=== PATIENT | male | born 1950 | race Hispanic/Latino ===

== ENCOUNTER → 2024-12-23 | Outpatient (CLI) | payer OTHER, MEDICAID ==
[~2024-12-23] VITALS: Ht 172.7 cm; Wt 85.5 kg
[~2024-12-23] MED LIST: ASPI-1443 PO; ATOR20TA65 PO; DAPA10TA PO; EVOL140S2 SQ; FAMO20TA8 PO; FENO48TA10 PO; OLME-31 PO; TAMS-55 PO
[2024-12-23 08:42] LABS: IMMATURE GRANULOCYTE ABSOLUTE 0.01 K/uL (0-1); NUCLEATED RED BLOOD CELLS 0.0 % (0.0-0.19); PLATELET COUNT (AUTO) 175 K/uL (130-400); RED BLOOD CELL COUNT(AUTO) 4.44 MIL/uL (4.50-6.20); RED CELL DISTRIBUTION WIDTH 12.0 % (11.0-15.5); WHITE BLOOD COUNT (AUTO) 4.7 K/uL (4.8-10.8)
[2024-12-23 08:49] LABS: CREATININE 2.4 mg/dL (0.5-1.3); GLOMERULAR FILTR. RATE CALC 28.0 mL/min (>90); GLUCOSE,RANDOM 114.0 mg/dL (70-105); SODIUM SERUM 140.0 mmol/L (136-145); UREA NITROGEN, BLOOD 35.0 mg/dL (7-18)
[2024-12-23 08:57] VITALS: BP 118/63; PULSE 72; RESP 18; TEMP 97.7
[2024-12-23 08:58] LABS: INR 0.96 (0.85-1.15)
[2024-12-23 09:05] LABS: APPEARANCE,URINE CLEAR (CLEAR); GLUCOSE, URINE (UA) >=1000 mg/dL (NEGATIVE); LEUKOCYTE ESTERASE ,URINE NEGATIVE Leu/uL (NEGATIVE); NITRATE,URINE NEGATIVE (NEGATIVE); OCCULT BLOOD,URINE NEGATIVE (NEGATIVE)
[2024-12-23 09:09] LABS: ADD UA MICROSCOPIC YES
--- NOTE | 2024-12-23 10:38 | EKG ---
[facility] Test Date: 2024-12-23 Test Time: 08:24:37 Pat Name: EDDIE VICENTE Department: [facility] Room: Gender: Loader: [id number] : 1950 Requested By: IKE HUFFMAN Order Number: [id number] Reading MD: Colin Dodd Measurements Intervals Tucker Rate: 66 P: 52 ID: [id number] QRS: 41 QRSD: 88 T: 50 QT: 383 QTc: 402 Interpretive Statements Sinus rhythm No previous ECG available for comparison Electronically Signed On 12-24-2024 06:55:25 CDT by Colin Dodd Please click the below link to view image of tracing.
--- NOTE | 2024-12-23 15:48 | HMCIMG ---
EXAM: CR Chest, 1 View. CLINICAL HISTORY: pre-op COMPARISON: None provided. FINDINGS: LUNGS: The lungs show no infiltrate or other acute finding. PLEURAL SPACES: No pleural effusion or pneumothorax. MEDIASTINUM: Cardiac size and mediastinal contours within normal limits. BONES: No acute osseous abnormality. IMPRESSION: No acute cardiopulmonary pathology is evident. /[place]
--- NOTE | 2024-12-24 11:28 | NUR ---
REPORT REPORTED BMP TO [facility]. RECEIVED ORDERS TO CANCEL PROCEDURE
== END | disposition home or self-care (01) ==
LOC: DAH 07:56 → EDSTATUS 08:00
PROVIDERS: ATTEND Internal Medicine Cardiovascular Disease
DX: Z01.818 Encounter for other preprocedural examination (principal); I25.10 Atherosclerotic heart disease of native coronary artery without angina pectoris; Z79.01 Long term (current) use of anticoagulants; Z53.8 Procedure and treatment not carried out for other reasons
CPT/HCPCS: 36415; 71045; 80048; 81001; 83880; 85025; 85610; 85730; 93005